=== PATIENT | female | born 1990 | race Caucasian/White ===

== ENCOUNTER 2020-09-19 21:33 | Emergency (ER) | payer OTHER ==
[2020-09-19 21:44] VITALS: BP 129/89; PULSE 80; TEMP 97.8; BMI 27.4
[2020-09-19] MEDS ORDERED: ACETAMINOPHEN 1000 MG/100 ML VIAL (NON FORMULARY) IVPB ONE (22:52)
[2020-09-19] MEDS ORDERED: LACTATED RINGERS SOLUTION 1000 ML INFUS.BAG IV ONE (22:52)
[2020-09-19] MEDS ORDERED: METOCLOPRAMIDE HCL INJECTION 10 MG/2 ML VIAL IVPUSH ONE (22:52)
[2020-09-19] MEDS ORDERED: METOCLOPRAMIDE HCL INJECTION 10 MG/2 ML VIAL ONE (22:56)
[2020-09-19] MEDS ORDERED: ACETAMINOPHEN INJECTION 100 ML IVPB ONE (22:57)
[2020-09-19 23:02] LABS: EOS % 1.3 % (0-4.5); HEMATOCRIT 37.9 % (32.4-45.2); HEMOGLOBIN 12.9 GM/dL (10.7-15.3); LYMPH % 43.3 % (8-40); MCH 28.9 pg (25.7-33.7); MCHC 34.1 g/dl (32.0-36.0); MEAN CELL VOLUME 84.8 fl (80-96); MEAN PLT VOLUME 8.6 fl (7.5-11.1); MONO % 9.9 % (3.8-10.2); NEUT % 44.5 % (42.8-82.8); PLATELET COUNT 297 K/MM3 (134-434); RBC 4.47 M/mm3 (3.60-5.2); RDW 13.7 % (11.6-15.6); WHITE BLOOD COUNT 7.5 K/mm3 (4.0-10.0)
[2020-09-19 23:12] LABS: POTASSIUM 3.8 mmol/L (3.5-5.1)
[2020-09-19 23:14] LABS: ALBUMIN 4.4 g/dl (3.4-5.0); CALCIUM 9.4 mg/dL (8.5-10.1)
[2020-09-19 23:15] LABS: BLOOD UREA NITROGEN 13.6 mg/dL (7-18)
[2020-09-19 23:18] LABS: CREATININE 0.7 mg/dL (0.55-1.3)
[2020-09-19 23:19] LABS: BILIRUBIN,TOTAL 0.2 mg/dL (0.2-1); TOT PROT 8.1 g/dl (6.4-8.2)
== END 2020-09-20 01:36 | disposition home or self-care (01) ==
LOC: JER 21:33
PROC: 3E033NZ Introduction of Analgesics, Hypnotics, Sedatives into Peripheral Vein, Percutaneous Approach (ICD-10-PCS; principal; 2020-09-19)
PROC: 3E033GC Introduction of Other Therapeutic Substance into Peripheral Vein, Percutaneous Approach (ICD-10-PCS; 2020-09-19)
DX: R51.9 Headache, unspecified (principal)
CPT/HCPCS: 36415; 80053; 84703; 85025; 99285-25; J0131

== ENCOUNTER 2021-04-28 08:45 | Emergency (ER) | payer OTHER ==
[2021-04-28 08:55] VITALS: PULSE 98; BMI 312.2
[2021-04-28] MEDS ORDERED: KETOROLAC TROMETHAMINE 30 MG/1 ML VIAL IM ONE (09:29)
[2021-04-28] MEDS ORDERED: diazePAM 5 MG TABLET PO ONE (09:30)
[2021-04-28] MEDS ORDERED: KETOROLAC TROMETHAMINE 30 MG/1 ML VIAL ONE (09:34)
[2021-04-28] MEDS ORDERED: diazePAM 5 MG TABLET ONE (09:34)
[2021-04-28 12:38] VITALS: BP 108/68; TEMP 98.2
== END 2021-04-28 13:16 | disposition home or self-care (01) ==
LOC: JER 08:45
PROC: 3E0233Z Introduction of Anti-inflammatory into Muscle, Percutaneous Approach (ICD-10-PCS; principal; 2021-04-28)
DX: M54.50 Low back pain, unspecified (principal); M54.2 Cervicalgia; M25.552 Pain in left hip; V44.5XXA Car driver injured in collision with heavy transport vehicle or bus in traffic accident, initial encounter
CPT/HCPCS: 70450-TC; 72125-TC; 73523-TC-FY; 93005; 93010; 99285-25